=== PATIENT | female | born 1955 | race Caucasian/White ===

== ENCOUNTER 2019-03-05 15:28 | Outpatient (CLI) | payer OTHER ==
--- NOTE | 2019-03-05 15:57 | XRAY Report ---
Reason: SOFT PAINFUL LESION DORSUM OF R MID FOOT Procedure Date: 03/05/2019 Accession Number: [id number] / [id number] Procedure: XR - Foot 3 View RT CPT Code: FULL RESULT: EXAM: RIGHT FOOT RADIOGRAPHY EXAM DATE: 03/05/2019 03:40 PM. CLINICAL HISTORY: SOFT PAINFUL LESION DORSUM OF R MID FOOT. COMPARISON: None. TECHNIQUE: 3 views. FINDINGS: Bones: Normal. No fractures or bone lesions. Joints: Normal. No subluxations. Soft Tissues: On the lateral view, there is a subtle superficial soft tissue bump on the dorsum of the right midfoot. IMPRESSION: 1. No osseous abnormality. 2. There is a small subtle dorsal midfoot soft tissue lump. If clinically indicated, the next imaging option would be targeted ultrasound. [facility]
== END 2019-03-05 15:29 | disposition home or self-care (01) ==
LOC: DI 15:28
PROVIDERS: ATTEND Podiatrist
DX: M79.671 Pain in right foot (principal); R22.41 Localized swelling, mass and lump, right lower limb

== ENCOUNTER 2019-06-19 16:33 | Emergency (ER) | payer OTHER ==
--- NOTE | 2019-06-19 16:58 | ED Physician Documentation ---
PD HPI NECK PAIN - Stated complaint Stated Complaint: FALL/NECK PX - Chief complaint Chief Complaint: Trauma Hd/Nk - History obtained from History obtained from: Patient (64-year-old woman who at the age of 35 had an LA with angioplasty, she is on cardiac meds and aspirin but no other anticoagulants. She tripped over her dog today and fell down the stairs, she complains mostly of neck pain but also hit her head. No severe headache. No l oss of consciousness. No injuries below the clavicles. She is walking around just fine. She declines pain medication on initial evaluation.) Review of Systems Constitutional: denies: Fever, Chills Eyes: denies: Loss of vision, Decreased vision Ears: denies: Loss of hearing, Ear pain Nose: denies: Rhinorrhea / runny nose, Congestion Throat: denies: Sore throat Cardiac: denies: Chest pain / pressure, Palpitations PD PAST MEDICAL HISTORY - Present Medications Home Medications: Ambulatory Orders Medication Instructions Recorded Confirmed Aspirin Chewable [[facility] Jeremias 81 mg DAILY 06/19/19 06/19/19 Aspirin] Eplerenone 50 mg PO DAILY 06/19/19 06/19/19 Lisinopril [Zestril] 20 mg PO DAILY 06/19/19 06/19/19 Metoprolol Succinate 150 mg PO DAILY 06/19/19 06/19/19 Rosuvastatin Calcium 40 mg PO DAILY 06/19/19 06/19/19 Venlafaxine HCl [Effexor Xr] 75 mg DAILY 06/19/19 06/19/19 - Allergies Allergies/Adverse Reactions: Allergies Allergy/AdvReac Type Severity Reaction Status Date / Time acetaminophen [From Vicodin] Allergy Itching Verified 06/19/19 16:41 hydrocodone [From Vicodin] Allergy Itching Verified 06/19/19 16:41 PD ED PE NORMAL - Vitals Vital signs reviewed: Yes - General General: Alert and oriented X 3, No acute distress - HEENT HEENT: PERRL, EOMI - Neck Neck: Other (Mild upper and mid C-spine tenderness, she is in a collar on my examination.) - Cardiac Cardiac: RRR, No murmur - Respiratory Respiratory: No respiratory distress, Clear bilaterally - Abdomen Abdomen: Non tender - Back Back: No CVA TTP, No spinal TTP - Derm Derm: Normal color, Warm and dry - Extremities Extremities: No deformity, No tenderness to palpate, Normal ROM s pain, No edema, No calf tenderness / cord - Neuro Neuro: Alert and oriented X 3, No motor deficit, No sensory deficit, Normal speech Results - Vitals Vitals: Vital Signs - 24 hr 06/19/19 06/19/19 06/19/19 16:35 20:21 21:25 Temperature 36.4 C L 37.0 C 37.0 C Heart Rate 63 65 73 Respiratory 16 20 16 Rate Blood Pressure 143/84 H 126/76 130/68 O2 Saturation 98 93 95 Oxygen O2 Source Room air - Labs Labs: Laboratory Tests 06/19/19 06/19/19 06/19/19 18:56 19:31 19:31 WBC 8.6 RBC 4.48 Hgb 13.5 Hct 41.1 MCV 91.7 MCH 30.1 MCHC 32.8 RDW 12.1 Plt Count 222 MPV 11.7 H Neut # (Auto) 5.4 Lymph # (Auto) 2.3 [place] # (Auto) 0.6 Eos # (Auto) 0.2 Baso # (Auto) 0.0 Absolute Nucleated RBC 0.00 Nucleated RBC % 0.0 PT 11.8 INR 1.0 Sodium 140 Potassium 4.0 Chloride 103 Carbon Dioxide 27 Anion Gap 10.0 BUN 12 Creatinine 0.9 Estimated GFR (MDRD) 63 L Glucose 128 H Calcium 9.5 - Rads (name of study) CT Head Radiology: EMP read contemporaneously (normal) Ct Cspine Radiology: EMP read contemporaneously (1. Unstable C1 injury. Mildly displaced acute fractures of the right and left anterior arch of C1. Nondisplaced fract ures of the right and left posterior arch of C1. Minimal right and mild left posterior subluxation of the lateral masses of C1 relative to C2. 2. No other fracture is identified in the cervical spine. 3. Moderate multilevel cervical degenerative changes as described above. ) CT of the thoracic and lumbar spine Radiology: EMP read contemporaneously (Mid right thyroid nodule measuring 1.4 cm, degenerative changes in the lumbar spine, no fractures.) PD MEDICAL DECISION MAKING - ED course ED course: 64-year-old woman with a fall down the stairs, initially really only the C-spine was the concern and does have an unstable C1 fracture, maintained in C-spine precautions and accepted to [facility] by Dr. Garibay For further evaluation and treatment, cobras were completed and she is stable for transport to a higher level of care. Subsequent to the C-spine fracture the remainder of the spine was imaged Without other pertinent positive findings. Departure - Departure Disposition: 02 Transfer Acute Care Hosp Clinical Impression: Thyroid nodule Concussion Qualifiers: Encounter type: initial encounter Loss of consciousness presence/duration: without LOC Qualified Code(s): S06.0X0A - Concussion without loss of consciousness, initial encounter Closed fracture of cervical vertebra Qualifiers: Encounter type: initial encounter Cervical vertebra fracture level: C1 Fracture morphology: burst- unstable Qualified Code(s): S12.02XA - Unstable burst fracture of first cervical vertebra, initial encounter for closed fracture Condition: Serious Discharge Date/Time: 06/19/19 21:30
--- NOTE | 2019-06-19 18:04 | CT Report ---
Reason: neck injury Procedure Date: 06/19/2019 Accession Number: [id number] / [id number] Procedure: CT - CERVICAL SPINE WO CPT Code: Addended Final Report FULL RESULT: EXAM: CT CERVICAL SPINE WITHOUT CONTRAST DATE: 06/19/2019 05:33 PM. HISTORY: Neck injury. Ground level fall, neck pain. COMPARISONS: HEAD W/O 06/19/2019 5:22 PM. TECHNIQUE: Thin-section axial images were acquired of the cervical spine without contrast. Post-processing: Coronal and sagittal reformats. Other: None. In accordance with CT protocol optimization, one or more of the following dose reduction techniques were utilized for this exam: automated exposure control, adjustment of mA and/or KV based on patient size, or use of iterative reconstructive technique. FINDINGS: Alignment: Minimal left convex cervical spine curvature. Posterior subluxation of the lateral masses of C1 relative to C2 measuring 2 mm on the right and 4 mm on the left. Bones: Acute fractures of the right and left aspects of the anterior arch of C1 with minimal displacement. Fractures at the roots of the posterior arch of C1 on the right and left without displacement. No other fracture or focal bone lesion from the craniocervical junction through T2. Interspace Levels/Facets: Mild osteoarthritis at the pre-dens interval. Minimal posterior endplate osteophyte formation at C3-C4. Disk height loss and endplate osteophyte formation indicating degenerative disk disease which is mild at C5-C6 and moderate at C6-C7. There is facet osteoarthritis which is moderate on the left at C2-C3, mild bilaterally at C3-C4, moderate on the right at C4-C5, moderate on the left at C5-C6. There is bony foraminal stenosis which is mild on the left at C2-C3, mild bilaterally at C3-C4 moderate on the right at C4-C5, moderate bilaterally at C5-C6, mild bilaterally at C6-C7. Musculature: Normal. No fatty atrophy. Other: The paravertebral and prevertebral soft tissues are unremarkable. The lung apices are clear. IMPRESSION: 1. Unstable C1 injury. Mildly displaced acute fractures of the right and left anterior arch of C1. Nondisplaced fractures of the right and left posterior arch of C1. Minimal right and mild left posterior subluxation of the lateral masses of C1 relative to C2. 2. No other fracture is identified in the cervical spine. 3. Moderate multilevel cervical degenerative changes as described above. [facility] The critical result notification system was initiated by Dr. Tono Barfield at 05:58 PM on 06/19/2019. ADDENDUM: 06/19/19 18:41 The above critical result findings were discussed with Armando Sarkar by Dr. Tono Barfield at 06:04 PM on 06/19/2019.
--- NOTE | 2019-06-19 18:07 | CT Report ---
Reason: head injury Procedure Date: 06/19/2019 Accession Number: [id number] / [id number] Procedure: CT - HEAD WO CPT Code: Final Report FULL RESULT: EXAM: CT HEAD EXAM DATE: 06/19/2019 05:33 PM. CLINICAL HISTORY: Head injury. Ground-level fall with head pain today. COMPARISON: CERVICAL SPINE W/O 06/19/2019 5:22 PM. TECHNIQUE: Multiaxial CT images were obtained from the foramen magnum to the vertex. Reformats: Sagittal and coronal. IV contrast: None. In accordance with CT protocol optimization, one or more of the following dose reduction techniques were utilized for this exam: automated exposure control, adjustment of mA and/or KV based on patient size, or use of iterative reconstructive technique. FINDINGS: Parenchyma: No intraparenchymal hemorrhage. No evidence of mass, midline shift or CT findings of acute territorial infarction. Mckeon-white differentiation is distinct. Extraaxial Spaces: No subdural or epidural collections identified. Ventricles: No hydrocephalus Sinuses: Imaged paranasal sinuses, orbits, and mastoids show no significant abnormality. Bones: No evidence of acute skull fracture. Partial visualization of C1 fracture. See CT cervical report. Other: None. IMPRESSION: No acute intracranial abnormalities. [facility]
--- NOTE | 2019-06-19 19:00 | CT Report ---
Reason: cervical spine fracture Procedure Date: 06/19/2019 Accession Number: [id number] / [id number] Procedure: CT - THORACIC SPINE WO CPT Code: Final Report FULL RESULT: EXAM: CT THORACIC SPINE WITHOUT CONTRAST EXAM DATE: 06/19/2019 06:35 PM. CLINICAL HISTORY: Cervical spine fracture. Ground level fall today. COMPARISONS: CERVICAL SPINE W/O 06/19/2019 5:22 PM. TECHNIQUE: Thin-section axial images were acquired of the thoracic spine from C7 to L1 without contrast. Post-processing: Coronal and sagittal reformats. Other: None. In accordance with CT protocol optimization, one or more of the following dose reduction techniques were utilized for this exam: automated exposure control, adjustment of mA and/or KV based on patient size, or use of iterative reconstructive technique. FINDINGS: Alignment: Minimal right convex thoracic spine curvature. Bones: No fracture or bone lesion. Disk Levels/Facets: Thoracic disk space heights are preserved. Facets are unremarkable. Musculature: Normal. No fatty atrophy. Other: The visualized mediastinum is unremarkable except for a possible tiny sliding hiatal hernia and a 1.4 cm lobulation/nodule isodense arising from the posterior mid right thyroid lobe. There is minimal physiologic reticular dependent atelectasis in both lungs. IMPRESSION: 1. Normal thoracic spine CT. 2. Nonspecific 1.4 cm lobulation/exophytic nodule arising from the posterior mid right thyroid lobe. [facility]
--- NOTE | 2019-06-19 19:06 | CT Report ---
Reason: cervical spine fracture Procedure Date: 06/19/2019 Accession Number: [id number] / [id number] Procedure: CT - LUMBAR SPINE WO CPT Code: Final Report FULL RESULT: EXAM: CT LUMBAR SPINE WITHOUT CONTRAST EXAM DATE: 06/19/2019 06:35 PM. CLINICAL HISTORY: Cervical spine fracture. Ground level fall today. COMPARISONS: THORACIC SPINE W/O 06/19/2019 6:31 PM. TECHNIQUE: Thin-section axial images were acquired of the lumbar spine from T11 to S3 without contrast. Post-processing: Coronal and sagittal reformats. Other: None. In accordance with CT protocol optimization, one or more of the following dose reduction techniques were utilized for this exam: automated exposure control, adjustment of mA and/or KV based on patient size, or use of iterative reconstructive technique. FINDINGS: Alignment: No scoliosis or spondylolisthesis. Bones: Five [id number] lumbar vertebral bodies are present. No fractures or bone lesions. Disk Levels/Facets: Mild disk height loss at L2-L3. Mild anterior endplate osteophyte formation at L2-L3 and L3-L4. No focal disk protrusion or significant bulges notified. Mild bilateral L5-S1 facet osteoarthritis. Musculature: Normal. No fatty atrophy. Other: The visualized retroperitoneum is unremarkable. IMPRESSION: 1. No fracture or subluxation in the lumbar spine. 2. Mild L2-L3 and minimal L3-L4 degenerative disk disease. [facility]IA
[2019-06-19 19:18] LABS: BASOPHILS % (AUTO) 0.5 %; EOSINOPHILS # (AUTO) 0.2 10^3/uL (0.0-0.7); EOSINOPHILS % (AUTO) 2.6 %; HGB - HEMOGLOBIN 13.5 g/dL (12.0-16.0); LYMPHOCYTES # (AUTO) 2.3 10^3/uL (1.5-3.5); LYMPHOCYTES % (AUTO) 26.6 %; MEAN CORPUSCULAR HEMOGLOBIN 30.1 pg (27.0-31.0); MEAN CORPUSCULAR HGB CONC 32.8 g/dL (32.0-36.0); MEAN CORPUSCULAR VOLUME 91.7 fL (81.0-99.0); MEAN PLATELET VOLUME 11.7 fL (7.9-10.8); MONOCYTES # (AUTO) 0.6 10^3/uL (0.0-1.0); MONOCYTES % (AUTO) 7.2 %; NEUTROPHILS # (AUTO) 5.4 10^3/uL (1.5-6.6); NEUTROPHILS % (AUTO) 62.8 %; PLT - PLATELET COUNT 222 10^3/uL (130-450); RED BLOOD COUNT 4.48 10^6/uL (4.20-5.40); RED CELL DISTRIBUTION WIDTH 12.1 % (12.0-15.0); WHITE BLOOD COUNT 8.6 x10^3/uL (4.8-10.8)
[2019-06-19] MEDS ORDERED: HYDROmorphone 1 MG/ML CARPUJECT IVP STA (19:31)
[2019-06-19 19:43] LABS: CALCIUM 9.5 mg/dL (8.5-10.3); CREATININE 0.9 mg/dL (0.4-1.0)
[2019-06-19 19:50] LABS: PT - PROTHROMBIN TIME 11.8 secs (9.9-12.6)
[2019-06-19 21:30] VITALS: BP 130/68
== END 2019-06-19 21:30 | disposition short-term general hospital (02) ==
LOC: ED 16:33
DX: S12.02XA Unstable burst fracture of first cervical vertebra, initial encounter for closed fracture (principal); S06.0X0A Concussion without loss of consciousness, initial encounter; W10.9XXA Fall (on) (from) unspecified stairs and steps, initial encounter; Y93.01 Activity, walking, marching and hiking; E04.1 Nontoxic single thyroid nodule; M50.323 Other cervical disc degeneration at C6-C7 level; M47.812 Spondylosis without myelopathy or radiculopathy, cervical region; M51.36 Other intervertebral disc degeneration, lumbar region; I25.2 Old myocardial infarction; Z98.61 Coronary angioplasty status; Z79.82 Long term (current) use of aspirin
CPT/HCPCS: 36415; 70450; 72125; 72128; 72131; 80048; 85025; 85610; 96374; 99284; 99285; J1170

== ENCOUNTER 2021-02-16 08:51 | Inpatient (IN) | payer OTHER ==
[2021-02-16 09:42] LABS: BASOPHILS # (AUTO) 0.1 10^3/uL (0.0-0.1); BASOPHILS % (AUTO) 0.5 %; EOSINOPHILS # (AUTO) 0.1 10^3/uL (0.0-0.7); EOSINOPHILS % (AUTO) 0.6 %; HCT - HEMATOCRIT 41.9 % (37.0-47.0); HGB - HEMOGLOBIN 13.7 g/dL (12.0-16.0); LYMPHOCYTES # (AUTO) 1.5 10^3/uL (1.5-3.5); LYMPHOCYTES % (AUTO) 13.3 %; MEAN CORPUSCULAR HEMOGLOBIN 30.6 pg (27.0-31.0); MEAN CORPUSCULAR HGB CONC 32.7 g/dL (32.0-36.0); MEAN CORPUSCULAR VOLUME 93.7 fL (81.0-99.0); MEAN PLATELET VOLUME 11.4 fL (7.9-10.8); MONOCYTES # (AUTO) 0.5 10^3/uL (0.0-1.0); NEUTROPHILS # (AUTO) 8.8 10^3/uL (1.5-6.6); NEUTROPHILS % (AUTO) 80.3 %; PLT - PLATELET COUNT 254 10^3/uL (130-450); RED BLOOD COUNT 4.47 10^6/uL (4.20-5.40); WHITE BLOOD COUNT 10.9 x10^3/uL (4.8-10.8)
[2021-02-16 09:55] LABS: ALBUMIN 4.7 g/dL (3.2-5.5); ALBUMIN/GLOBULIN RATIO 1.6 (1.0-2.2); CALCIUM 9.5 mg/dL (8.5-10.3); CREATININE 1.1 mg/dL (0.4-1.0); POTASSIUM 4.6 mmol/L (3.5-5.0); TOTAL PROTEIN 7.6 g/dL (6.7-8.2)
[2021-02-16] MEDS ORDERED: HYDROmorphone 1 MG/ML CARPUJECT IVP STA ×2 (09:57→14:52)
[2021-02-16] MEDS ORDERED: ONDANSETRON 4 MG/2 ML VIAL IVP STA (09:57)
--- NOTE | 2021-02-16 10:02 | ED Physician Documentation ---
PD HPI ABD PAIN - Stated complaint Stated Complaint: N/V - Chief complaint Chief Complaint: Abd Pain - History obtained from History obtained from: Patient - History of Present Illness Timing - onset: Last night (2AM) Timing - duration: Hours Timing - details: Abrupt onset Pain level max: 8 Pain level now: 8 Quality: Aching Location: LUQ, LLQ Improved by: Other (Tylenol at 3AM took the 'edge off') Associated symptoms: Nausea, Vomiting. No: Fever, Diarrhea, Constipation, Dysuria, Hematuria, Chest pain, Dizzy, Near syncope / syncope Similar symptoms before: Has not had sx before - Additional information Additional information: This is a 65-year-old woman who was awakened at 2 AM with pain in her left lower abdomen. She was nauseous and had 2 episodes of vomiting through the night the last one being at 3 AM. She rates the pain at an 8 out of 10 it has been constant since it started. She did not eat anything that she thinks may have made her ill and she is never had pain like this before. Denies abdominal surgeries. Denies diarrhea or blood in the stool. No fever. She did take Tylenol at approximately 8 AM and it "took the edge off".Patient denies fever, palpitations, dizziness, difficulty breathing, dysuria or hematuria. Denies abdominal surgeries. Rarely drinks alcohol. Review of Systems Constitutional: reports: Chills. denies: Fever Eyes: denies: Loss of vision Nose: denies: Congestion Cardiac: denies: Palpitations Respiratory: denies: Dyspnea, Cough GI: reports: Nausea, Vomiting. denies: Constipation, Diarrhea : denies: Dysuria, Frequency Neurologic: denies: Generalized weakness PD PAST MEDICAL HISTORY - Past Medical History Cardiovascular: Hypertension - Present Medications Home Medications: Ambulatory Orders Medication Instructions Recorded Confirmed Aspirin Chewable [St Jeremias 81 mg DAILY 06/19/19 06/19/19 Aspirin] Eplerenone 50 mg PO DAILY 06/19/19 06/19/19 Lisinopril [Zestril] 20 mg PO DAILY 06/19/19 06/19/19 Metoprolol Succinate 150 mg PO DAILY 06/19/19 06/19/19 Rosuvastatin Calcium 40 mg PO DAILY 06/19/19 06/19/19 Venlafaxine HCl [Effexor Xr] 75 mg DAILY 06/19/19 06/19/19 - Allergies Allergies/Adverse Reactions: Allergies Allergy/AdvReac Type Severity Reaction Status Date / Time acetaminophen [From Vicodin] Allergy Itching Verified 02/16/21 09:09 hydrocodone [From Vicodin] Allergy Itching Verified 02/16/21 09:09 - Social History Does the pt smoke?: No Smoking Status: Never smoker Does the pt drink ETOH?: Yes Does the pt have substance abuse?: No - POLST Patient has POLST: No PD ED PE NORMAL - Vitals Vital signs reviewed: Yes - General General: Alert and oriented X 3, Well developed/nourished, Other (Appears unc omfortable holding her hand to her left abdomen) - HEENT HEENT: Atraumatic, EOMI - Cardiac Cardiac: RRR, No murmur - Respiratory Respiratory: No respiratory distress, Clear bilaterally - Abdomen Abdomen: Other (Tender in the left lower and left upper quadrants with some guarding. No rebound. No palpable masses.) - Derm Derm: Normal color, Warm and dry - Neuro Neuro: Alert and oriented X 3, No motor deficit, No sensory deficit, Normal speech - Psych Psych: Normal mood Results - Vitals Vitals: Vital Signs - 24 hr 02/16/21 02/16/21 02/16/21 09:06 11:09 12:23 Temperature 36.8 C Heart Rate 62 54 L 57 L Respiratory 15 15 18 Rate Blood Pressure 136/84 H 112/63 115/70 O2 Saturation 99 99 99 02/16/21 02/16/21 02/16/21 14:09 16:04 17:01 Temperature Heart Rate 63 120 H 64 Respiratory 16 17 17 Rate Blood Pressure 113/66 103/57 L 96/82 H O2 Saturation 97 99 95 Oxygen O2 Source Room air - EKG (time done) 1718 Rate: Rate (enter#) (55) Rhythm: Sinus bradycardia Ischemia: Non specific changes - Labs Labs: Laboratory Tests 02/16/21 02/16/21 02/16/21 09:31 09:31 10:55 WBC 10.9 H RBC 4.47 Hgb 13.7 Hct 41.9 MCV 93.7 MCH 30.6 MCHC 32.7 RDW 12.0 Plt Count 254 MPV 11.4 H Neut # (Auto) 8.8 H Lymph # (Auto) 1.5 Edgar # (Auto) 0.5 Eos # (Auto) 0.1 Baso # (Auto) 0.1 Absolute Nucleated RBC 0.00 Nucleated RBC % 0.0 D-Dimer Sodium 135 Potassium 4.6 Chloride 99 L Carbon Dioxide 25 Anion Gap 11.0 BUN 14 Creatinine 1.1 H Estimated GFR (MDRD) 50 L Glucose 199 H Calcium 9.5 Total Bilirubin 1.0 AST 56 H ALT 59 Alkaline Phosphatase 76 Total Protein 7.6 Albumin 4.7 Globulin 2.9 Albumin/Globulin Ratio 1.6 Lipase 36 Urine Color Urine Clarity Urine pH Ur Specific [place] Urine Protein Urine Glucose (UA) Urine Ketones Urine Occult Blood Urine Nitrite Urine Bilirubin Urine Urobilinogen Ur Leukocyte Esterase Ur Microscopic Review Urine Culture Comments SARS-CoV-2 (PCR) NOT DETECTED 02/16/21 02/16/21 12:22 15:07 WBC RBC Hgb Hct MCV MCH MCHC RDW Plt Count MPV Neut # (Auto) Lymph # (Auto) Edgar # (Auto) Eos # (Auto) Baso # (Auto) Absolute Nucleated RBC Nucleated RBC % D-Dimer 339.5 H Sodium Potassium Chloride Carbon Dioxide Anion Gap BUN Creatinine Estimated GFR (MDRD) Glucose Calcium Total Bilirubin AST ALT Alkaline Phosphatase Total Protein Albumin Globulin Albumin/Globulin Ratio Lipase Urine Color YELLOW Urine Clarity CLEAR Urine pH 7.0 Ur Specific [place] 1.015 Urine Protein NEGATIVE Urine Glucose (UA) NEGATIVE Urine Ketones NEGATIVE Urine Occult Blood NEGATIVE Urine Nitrite NEGATIVE Urine Bilirubin NEGATIVE Urine Urobilinogen 0.2 (NORMAL) Ur Leukocyte Esterase NEGATIVE Ur Microscopic Review NOT INDICATED Urine Culture Comments NOT INDICATED SARS-CoV-2 (PCR) PD MEDICAL DECISION MAKING - ED course ED course: CT consistent with a splenic infarct. No evidence of diverticulitis. Her white counts only 10.9. BUN and creatinine are normal. Covid screen was negative. She does have an elevated D-dimer which was added after the infarct was found. I was able to talk to a vascular surgeon who recommended that the patient have a hypercoagulable panel drawn then started on a heparin bolus and drip. Further work-up to include EKG to rule out A. fib which her EKG shows sinus rhythm. CTA chest including the upper abdomen and an echocardiogram. Surgeon felt this would be medical management without any surgical or interventional intervention.I spoke with our hospitalist and Dr. Sutherland has accepted the patient for admission. Departure - Departure Disposition: 66 [facility] DC/Xfer Clinical Impression: Splenic infarction Condition: Good
[2021-02-16 12:33] LABS: BILIRUBIN,URINE NEGATIVE (NEGATIVE); GLUCOSE, URINE (UA) NEGATIVE (NEGATIVE); KETONES,URINE (UA) NEGATIVE (NEGATIVE); LEUKOCYTE ESTERASE, URINE NEGATIVE (NEGATIVE); NITRITE,URINE NEGATIVE (NEGATIVE); OCCULT BLOOD,URINE NEGATIVE (NEGATIVE); PROTEIN,URINE NEGATIVE (NEGATIVE); UROBILINOGEN,URINE 0.2 (NORMAL) E.U./dL (NORMAL)
[2021-02-16 12:34] LABS: CLARITY,URINE CLEAR (CLEAR)
[2021-02-16] MEDS ORDERED: IOPAMIDOL-300 100 ML VIAL ONE ×2 (14:08→18:09)
--- NOTE | 2021-02-16 14:41 | CT Report ---
PROCEDURE: Abdomen/Pelvis W INDICATIONS: Abd pain CONTRAST: IV CONTRAST: Isovue 300 ml: 100 PO CONTRAST: *NO PO CONTRAST TECHNIQUE: After the administration of intravenous contrast, 5 mm thick sections acquired from the diaphragms to the symphysis. 5 mm thick coronal and sagittal reformats were acquired. For radiation dose reducti on, the following was used: automated exposure control, adjustment of mA and/or kV according to vidal ent size. COMPARISON: None. FINDINGS: Image quality: Excellent. ABDOMEN: Lung bases: Lung bases are clear. Heart size is normal. Solid organs: There is essentially no opacification in the anterior spleen, with approximately 50% of the parenchyma not opacified. Findings are consistent with a splenic infarct. The liver is unremarka ble. Biliary system is non dilated. Pancreas enhances normally. No adrenal nodules. Kidneys demons trate normal size and enhancement, without hydronephrosis. Peritoneum and bowel: Bowel loops demonstrate normal wall thickness and caliber. No free fluid or a ir. Nodes and vessels: No retroperitoneal or mesenteric adenopathy by size criteria. Aorta and inferior vena cava are normal in size. Miscellaneous: No ventral hernias. PELVIS: Genitourinary: Bladder wall thickness is normal. Miscellaneous: No inguinal hernias or adenopathy. Bones: No suspicious bony lesions. No vertebral body compression fractures. IMPRESSION: Moderate sized splenic infarct affecting approximately 50% of the splenic parenchyma. Reviewed by: Rubens Echevarria MD on 02/16/2021 2:40 PM PDT Approved by: Rubens Echevarria MD on 02/16/2021 2:40 PM PDT Station ID: [id number]
[2021-02-16] MEDS: IOPAMIDOL-300 100 ML VIAL IVP ONE ×2 (16:49→20:48)
[2021-02-16] MEDS ORDERED: ONDANSETRON 4 MG/2 ML VIAL IVP PRN (17:34)
[2021-02-16] MEDS ORDERED: MORPHINE 2 MG/ML CARPUJECT IVP PRN (17:34)
[2021-02-16] MEDS ORDERED: ONDANSETRON ODT 4 MG TABLET TL PRN (17:34)
[2021-02-16] MEDS ORDERED: SODIUM CHLORIDE FLUSH 0.9% 10 ML SYRINGE IVP PRN (17:34)
--- NOTE | 2021-02-16 17:56 | HISTORY & PHYSICAL EXAMINATION ---
Chief Complaint - Chief Complaint Chief Complaint: abd pain History of Present Illness - Admitted From Admitted From:: home - History Obtained From Records Reviewed: [facility] History obtained from: patient and Dr. Gibbs Exam Limitations: none - History of Present Illness HPI Comment/Other: A 65-year-old white female who has a history of hypertension and MO that presents with sudden abdominal pain this morning. It woke her from sleep at 2 AM. It was associated with vomiting. No diarrhea. No change in her bowel movements. Denies fever, chills, rigors. It is left-sided. Made worse with movement. Driving here definitely would increase the severity of the pain. She is having bowel movements, is having flatus. Tylenol does take the edge off. She was evaluated by the ER doctor who found her temperature to be 36.8, heart rate 62, respirations 15, blood pressure 136/84 and 99% saturated on room air. She was tender in the left lower and left upper quadrants with some guarding. No rebound. No masses. Positive bowel sounds. I white cell count was 10.9, hemoglobin 13.7. A CT of the abdomen was done and consistent with a splenic infarct. The emergency room physician consulted with vascular surgery who recommended the patient have a hypercoagulable work-up, to be started on heparin drip, and see if other causes such as A. fib with emboli has caused this problem. On further review of systems this patient does not have any B symptoms. No recent weight loss. No change in appetite. History - Past Medical History Cardiovascular: reports: Hypertension Neuro: reports: None Endocrine/Autoimmune: reports: None GI: reports: None GRAPHIC TECHNICIAN: reports: None : reports: None HEENT: reports: None Psych: reports: None Musculoskeletal: reports: Other Derm: reports: None - POLST Patient has POLST: No Meds/Allgy - Home Medications Home Medications: Ambulatory Orders Medication Instructions Recorded Confirmed Aspirin Chewable [St Jeremias 81 mg DAILY 06/19/19 06/19/19 Aspirin] Eplerenone 50 mg PO DAILY 06/19/19 06/19/19 Lisinopril [Zestril] 20 mg PO DAILY 06/19/19 06/19/19 Metoprolol Succinate 150 mg PO DAILY 06/19/19 06/19/19 Rosuvastatin Calcium 40 mg PO DAILY 06/19/19 06/19/19 Venlafaxine HCl [Effexor Xr] 75 mg DAILY 06/19/19 06/19/19 - Allergies Allergies/Adverse Reactions: Allergies Allergy/AdvReac Type Severity Reaction Status Date / Time acetaminophen [From Vicodin] Allergy Itching Verified 02/16/21 09:09 hydrocodone [From Vicodin] Allergy Itching Verified 02/16/21 09:09 Exam - Vital Signs Vital Signs: Vital Signs x48h Pulse Resp BP Pulse Ox 02/16/21 17:01 64 17 96/82 H 95 02/16/21 16:04 120 H 17 103/57 L 99 02/16/21 14:09 63 16 113/66 97 02/16/21 12:23 57 L 18 115/70 99 02/16/21 11:09 54 L 15 112/63 99 Conclusion/Plan - Lab Results Lab results reviewed: Yes Fish Bones: 02/16/21 09:31 02/16/21 09:31 - Diagnostic Imaging Results Diagnostic Imaging Results: positive: Final report reviewed Core Measures - Anticipated LOS I expect patient to be DC'd or transferred within 96 hours.: Yes - DVT/VTE - Prophylaxis VTE/DVT Device ordered at admit?: Yes
[2021-02-16] MEDS ORDERED: HEPARIN 25000UNITS/500ML (D5W) 25,000 UNIT/500 ML BAG IV SCH ×3 (18:00→21:00)
[2021-02-16] MEDS ORDERED: SODIUM CHLORIDE 0.9% 1,000 ML IV ONE (18:09)
[2021-02-16 18:25] LABS: HCT - HEMATOCRIT 38.3 % (37.0-47.0); HGB - HEMOGLOBIN 13.2 g/dL (12.0-16.0); MEAN CORPUSCULAR HEMOGLOBIN 31.4 pg (27.0-31.0); MEAN CORPUSCULAR HGB CONC 34.5 g/dL (32.0-36.0); MEAN CORPUSCULAR VOLUME 91.2 fL (81.0-99.0); MEAN PLATELET VOLUME 10.9 fL (7.9-10.8); RED BLOOD COUNT 4.2 10^6/uL (4.20-5.40); RED CELL DISTRIBUTION WIDTH 12.1 % (12.0-15.0); WHITE BLOOD COUNT 8.6 x10^3/uL (4.8-10.8)
--- NOTE | 2021-02-16 19:43 | CT Report ---
PROCEDURE: ANGIO CHEST W INDICATIONS: splenic infarct CONTRAST: IV CONTRAST: Isovue 300 ml: 100 PO CONTRAST: *NO PO CONTRAST TECHNIQUE: After the administration of intravenous contrast, images were acquired from the pulmonary apices to t he posterior costophrenic angles. 3-dimensional maximum intensity projection (MIP) coronal and sagit tonie reformats were then acquired through the thorax. For radiation dose reduction, the following was used: automated exposure control, adjustment of mA and/or kV according to patient size. COMPARISON: Prior CT abdomen pelvis 02/16/2021. Concurrent CT angiogram of the abdomen and pelvis. FINDINGS: Image quality: Excellent. Aorta: The thoracic aorta is normal in caliber and contour. No intimal flaps to suggest dissection. N o intraluminal thrombus identified. There is a bovine aortic arch with common origin of the right bra chiocephalic and left common carotid arteries. The visualized great vessels are normal in caliber and appear patent. Lungs and pleura: There is mild dependent atelectasis. No acute consolidation. No pleural effusions o r pneumothorax. Central and peripheral airways are patent. Mediastinum: Heart size is normal, without pericardial effusion. Evaluation for intraventricular thr ombus is limited in the absence of cardiac gating. There is subendocardial fat within the myocardium of the left ventricular apex. The pulmonary arteries are normal in size without filling defects ident ified. No mediastinal or hilar adenopathy. Esophagus is normal in caliber, with a small hiatal herni a. Bones and chest wall: No suspicious bony lesions. Ribs and thoracic spine appear intact throughout. No axillary or supraclavicular adenopathy. There is heterogeneity of the thyroid with a hypoattenu ating nodule in the left lobe measuring approximately 1.1 cm. Abdomen: Visualized upper abdomen demonstrates heterogeneous enhancement of the spleen with hypoenha ncement anteriorly consistent with an infarct. IMPRESSION: 1. No focal stenosis, occlusion, or filling defects within the thoracic aorta. 2. Subendocardial fat within the left ventricular apex. The finding is nonspecific but suggestive of a prior infarct. Evaluation for intraventricular thrombus limited in the absence of cardiac gating. R ecommend correlation with echocardiography. 3. Hypoenhancement of the spleen consistent with a splenic infarct redemonstrated. Reviewed by: Tono Rojas MD on 02/16/2021 7:42 PM PDT Approved by: Tono Rojas MD on 02/16/2021 7:42 PM PDT Station ID: [id number]
--- NOTE | 2021-02-16 19:53 | CT Report ---
PROCEDURE: ANGIO ABDOMEN/PELVIS W INDICATIONS: abd pain and splenic infarct CONTRAST: IV CONTRAST: Isovue 300 ml: 100 PO CONTRAST: *NO PO CONTRAST TECHNIQUE: After the administration of intravenous contrast, 1 mm sections acquired from the diaphragm to the il iac crests. 3-dimensional maximum intensity projection (MIP) coronal and sagittal reformats, and/or 3-dimensional volume rendering reformatting was then performed. For radiation dose reduction, the fo llowing was used: automated exposure control, adjustment of mA and/or kV according to patient size. COMPARISON: Concurrent CTA chest. Prior CT abdomen pelvis 02/16/2021. FINDINGS: Image quality: Excellent. Extravascular tissues: There is mild scarring and dependent atelectasis in the lung bases. There is a small hiatal hernia. Heart size is normal. The spleen is normal in size. There is hypoenhancement o f the spleen anteriorly redemonstrated compatible with splenic infarcts. No focal hepatic lesions bhavesh ntified. Gallbladder appears within normal limits without calcified gallstones. Biliary system is non dilated. Pancreas demonstrates normal contours without peripancreatic fluid. No adrenal nodules. K idneys since are no hydronephrosis. Non-opacified bowel loops demonstrate normal wall thickness and c aliber. No free fluid or air. The bladder is nondistended. No retroperitoneal or mesenteric adenopa thy. No ventral hernias. No suspicious bony abnormalities. No vertebral body compression fractures . Abdominal aorta: The abdominal aorta is normal in caliber and contour. The visualized common, trimmer machine operator al, and internal iliac arteries as well as the visualized common femoral arteries also appear patent. There is mild scattered calcified atherosclerotic plaque. No focal stenosis. Mesenteric arteries: The celiac and superior mesenteric arteries appear patent. The splenic artery a ppears patent. The inferior mesenteric artery appears patent proximally with distal branches not well opacified. Renal arteries: There are single renal arteries bilaterally which appear patent. IMPRESSION: 1. No focal stenosis or thrombus identified in the abdominal aorta or its branch vessels proximally. 2. Splenic artery appears patent. Reviewed by: Tono Rojas MD on 02/16/2021 7:51 PM PDT Approved by: Tono Rojas MD on 02/16/2021 7:51 PM PDT Station ID: [id number]
[2021-02-16] MEDS: oxyCODONE 5 MG TABLET PO PRN (20:20)
[2021-02-16] MEDS ORDERED: SODIUM CHLORIDE 0.9% 2,000 ML IV ONE (20:28)
--- NOTE | 2021-02-16 20:55 | HISTORY & PHYSICAL EXAMINATION ---
History and Physical - History and Physical Chief complaint: Abdominal pain Source of history: ER signout, patient, medical record review History of present illness: The patient is a pleasant 65-year-old white female with past medical history of hypertension and remote history of coronary artery disease. She does not have history of diabetes, cardiac arrhythmia or thromboembolic disorder. She reports usually being in good general health. She was in her usual state of health up to 2 AM on February 16 at which time she was woken up from sleep by strong sharp left lower quadrant abdominal pain. The pain actually started in the upper quadrant and radiated down to the lower quadrant and to the groin. It was 8 out of 10 intensity, constant, nonresolving. Was associated with nausea and couple of episodes of emesis. Last bowel movement was the day prior, was normal. Patient reports no history or sign of GI bleed. Denied chest pain or shortness of breath. Did not report fever. Never experienced similar abdominal pain in the past. The symptom onset was acute and severe therefore she came to the ER for evaluation. The ER work-up showed a splenic infarct, 50% of the spleen parenchyma being affected. Case was discussed with vascular surgeon who recommended telemetry monitoring, heparin drip, hypercoagulability work-up echocardiogram and further work-up with CT angiography of the chest including the upper abdomen. Subsequently, the patient was accepted to [facility] by the daytime hospitalist and all the recommended orders were placed. Past medical history: Hypertension Dyslipidemia Depression C1 cervical fracture status post fall, treated conservatively Thyroid nodule Coronary artery disease status post angioplasty more than 20 years ago Outpatient medications: Aspirin Chewable [[facility] Jeremias Aspirin] 81 mg DAILY 06/19/19 Eplerenone 50 mg PO DAILY 06/19/19 Lisinopril [Zestril] 20 mg PO DAILY 06/19/19 Metoprolol Succinate 150 mg PO DAILY 06/19/19 Rosuvastatin Calcium 40 mg PO DAILY 06/19/19 Venlafaxine HCl [Effexor Xr] 75 mg DAILY 06/19/19 Allergies Allergy/AdvReac Type Severity Reaction Status Date / Time acetaminophen [From Vicodin] Allergy Itching Verified 02/16/21 09:09 hydrocodone [From Vicodin] Allergy Itching Verified 02/16/21 09:09 Family history: Patient reports that coronary artery disease strongly affected her family, multiple family members having heart disease prior to age 50. In particular her father received three-way coronary artery bypass graft at age 50. She also reports her mother had blood clots. She does not know about family history of autoimmune disorders or hypercoagulable states. She reports no frequent miscarriages in female family members however she reports that she did have a miscarriage one time. Subsequently had a healthy and has 1 child. Social history and functional status: The patient is a fully functional adult, she drives and has no cognitive or functional limitation or impairment. She is supported by her . She does not report any psychosocial issues or challenges. She is a non-smoker and drinks alcohol rarely. Advanced directive/CODE STATUS: CODE STATUS was discussed with the patient. She wishes to be full code and be treated aggressively in case of medical emergency. Her next of kin is her . Review of symptoms: 12 point review done, pertinent positives and negatives listed above at history present illness, there was no additional positive. Vital Signs 02/16/21 02/16/21 02/16/21 09:06 11:09 12:23 Temperature 36.8 C Heart Rate 62 54 L 57 L Heart Rate [ Brachial] Respiratory 15 15 18 Rate Blood Pressure 136/84 H 112/63 115/70 Blood Pressure [Right Brachial artery] O2 Saturation 99 99 99 Oxygen O2 Source Room air Physical exam: General: HEENT: Respiratory: CVS: S1, S2, Regular, no murmur rub or gallop heard Abdomen: Neurologic: Alert, oriented; no focal lateralizing sign. Psych: Cooperative. Lymph: No pedal edema. Skin: Without pallor. Musculoskeltal: Laboratory Tests 02/16/21 02/16/21 02/16/21 09:31 09:31 10:55 WBC 10.9 H RBC 4.47 Hgb 13.7 Hct 41.9 MCV 93.7 MCH 30.6 MCHC 32.7 RDW 12.0 Plt Count 254 MPV 11.4 H Neut # (Auto) 8.8 H Lymph # (Auto) 1.5 Travis # (Auto) 0.5 Eos # (Auto) 0.1 Baso # (Auto) 0.1 Absolute Nucleated RBC 0.00 Nucleated RBC % 0.0 D-Dimer Sodium 135 Potassium 4.6 Chloride 99 L Carbon Dioxide 25 Anion Gap 11.0 BUN 14 Creatinine 1.1 H Estimated GFR (MDRD) 50 L Glucose 199 H Calcium 9.5 Total Bilirubin 1.0 AST 56 H ALT 59 Alkaline Phosphatase 76 Total Protein 7.6 Albumin 4.7 Globulin 2.9 Albumin/Globulin Ratio 1.6 Lipase 36 Urine Color Urine Clarity Urine pH Ur Specific [place] Urine Protein Urine Glucose (UA) Urine Ketones Urine Occult Blood Urine Nitrite Urine Bilirubin Urine Urobilinogen Ur Leukocyte Esterase Ur Microscopic Review Urine Culture Comments SARS-CoV-2 (PCR) NOT DETECTED Blood Type Antibody Screen 02/16/21 02/16/21 02/16/21 12:22 15:07 18:09 WBC RBC Hgb Hct MCV MCH MCHC RDW Plt Count MPV Neut # (Auto) Lymph # (Auto) Travis # (Auto) Eos # (Auto) Baso # (Auto) Absolute Nucleated RBC Nucleated RBC % D-Dimer 339.5 H Sodium Potassium Chloride Carbon Dioxide Anion Gap BUN Creatinine Estimated GFR (MDRD) Glucose Calcium Total Bilirubin AST ALT Alkaline Phosphatase Total Protein Albumin Globulin Albumin/Globulin Ratio Lipase Urine Color YELLOW Urine Clarity CLEAR Urine pH 7.0 Ur Specific [place] 1.015 Urine Protein NEGATIVE Urine Glucose (UA) NEGATIVE Urine Ketones NEGATIVE Urine Occult Blood NEGATIVE Urine Nitrite NEGATIVE Urine Bilirubin NEGATIVE Urine Urobilinogen 0.2 (NORMAL) Ur Leukocyte Esterase NEGATIVE Ur Microscopic Review NOT INDICATED Urine Culture Comments NOT INDICATED SARS-CoV-2 (PCR) Blood Type A POSITIVE Antibody Screen NEGATIVE Imaging reviewed per electronic medical record, including CT scan of the abdomen, chest and pelvis Assessment and plan: Active issues/diagnoses Acute abdominal pain Moderate sized splenic infarct /50% of the parenchyma affected Follow-up CT angiography of the chest, abdomen and pelvis confirmed previously seen splenic infarct, showed patent splenic artery, however showed some endocardial fat pad at the left apex raising the possibility of intraventricular thrombus Strong family history of coronary artery disease with personal history of premature coronary artery disease/high cardiac risk Plan and orders: Admitted as inpatient Telemetry monitoring Echocardiogram Therapeutic anticoagulation on heparin drip Further work-up per vascular surgery recommendation include hypercoagulable work-up, CT angiography of the chest, abdomen and pelvis Added REJI with reflex, lipid panel, hemoglobin A1c, troponin and TSH IV hydration for renal protection will be provided following contrast load with multiple CT scans and angiography studies DVT prophylaxis with SCDs/already on heparin drip Reconcile home medications; continue metoprolol, aspirin, statin and Effexor, hold diuretics considering significant contrast load and renal protection Full Code Attestation: I certify that the patient meets inpatient criteria based on the admission diagnosis, and the above assessment, findings and plan; she is expected to be hospitalized for more than 48 hours however to discharge or transfer to other facility within less than 96 hours.
[2021-02-16 22:25] LABS: ESTIMATED AVERAGE GLUCOSE 186 mg/dL (70-100); HEMOGLOBIN A1c% 8.1 % (4.27-6.07)
[2021-02-16] MEDS: ATORVASTATIN 40 MG TABLET PO SCH (22:57)
[2021-02-17] MEDS: SODIUM CHLORIDE FLUSH 0.9% 10 ML SYRINGE IVP SCH ×3 (00:09→18:03)
[2021-02-17] MEDS: ACETAMINOPHEN 325 MG TABLET PO PRN ×2 (04:09→12:08)
[2021-02-17] MEDS: LACTATED RINGERS 1,000 ML IV SCH ×2 (06:08→18:02)
[2021-02-17 06:16] LABS: CHOLESTEROL 96 mg/dL; HDL CHOLESTEROL 32 mg/dL; LDL CHOLESTEROL,CALCULATED 33 mg/dL; TRIGLYCERIDES 157 mg/dL; VLDL CHOLESTEROL 31 mg/dL
[2021-02-17 06:45] LABS: HGB - HEMOGLOBIN 11.6 g/dL (12.0-16.0); MEAN CORPUSCULAR HEMOGLOBIN 30.6 pg (27.0-31.0); MEAN CORPUSCULAR HGB CONC 32.2 g/dL (32.0-36.0); MEAN PLATELET VOLUME 11.5 fL (7.9-10.8); RED BLOOD COUNT 3.79 10^6/uL (4.20-5.40); RED CELL DISTRIBUTION WIDTH 12.1 % (12.0-15.0); WHITE BLOOD COUNT 7.4 x10^3/uL (4.8-10.8)
[2021-02-17] MEDS: VENLAFAXINE ER 75 MG CAPSULE PO SCH (08:29)
[2021-02-17] MEDS: ASPIRIN CHEW 81 MG TABLET PO SCH ×2 (08:29→08:38)
[2021-02-17] MEDS ORDERED: METOPROLOL SUCCINATE 50 MG TABLET PO SCH ×2 (09:00→09:50)
--- NOTE | 2021-02-17 10:57 | PROVIDER PROGRESS NOTE ---
Subjective - Prog Note Date Prog Note Date: 02/17/21 Prog Note Time: 10:55 - Subjective Subjective: She still has the left mid and left upper quadrant pain. It is better than it was yesterday but coughing or sneezing make it worse. Getting up and moving makes it worse. She has flatus. No fever. No chest pain or shortness of breath. Current Medications - Current Medications Current Medications: Active Medications Acetaminophen (Acetaminophen 325 Mg Tablet) 650 mg PO Q4HR PRN PRN Reason: Pain 1 to 4 Last Admin: 02/17/21 04:09 Dose: 650 mg Documented by: Atorvastatin Calcium (Atorvastatin 40 Mg Tablet) 80 mg PO HS NAVNEET Last Admin: 02/16/21 22:57 Dose: 80 mg Documented by: Heparin Sodium (Porcine) (Heparin 1,000 Unit/Ml Vial) 2,100 unit 25 unit/kg (2100 unit) IVP Q6H PRN PRN Reason: ANTI-XA < 0.2 Lactated Ringer's (Lr) 1,000 mls @ 85 mls/hr IV .[id number] PENDING SALE TO [facility] Last Admin: 02/17/21 06:08 Dose: 85 mls/hr Documented by: Heparin Sodium/Dextrose (Heparin Sodium/Dextrose) 25,000 unit in 500 mls @ 23.4 mls/hr IV .[id number] NAVNEET; Protocol Last Titration: 02/17/21 06:21 Dose: 13 unit/kg/hr, 20.28 mls/hr Documented by: Metoprolol Succinate (Metoprolol Succinate 50 Mg Tablet) 150 mg PO QPM PENDING SALE TO [facility] Morphine Sulfate (Morphine 2 Mg/Ml Carpuject) 2 mg IVP Q2HR PRN PRN Reason: Pain 8 to 10 Ondansetron HCl (Ondansetron Odt 4 Mg Tablet) 4 mg TL Q6HR PRN PRN Reason: Nausea / Vomiting Ondansetron HCl (Ondansetron 4 Mg/2 Ml Vial) 4 mg IVP Q6HR PRN PRN Reason: Nausea / Vomiting Oxycodone HCl (Oxycodone 5 Mg Tablet) 5 mg PO Q4HR PRN PRN Reason: Pain 5 to 7 Last Admin: 02/16/21 20:20 Dose: 5 mg Documented by: Polyethylene Glycol (Polyethylene Glycol 3350 17 Gm Packet) 17 gm PO DAILY PENDING SALE TO [facility] Sodium Chloride (Sodium Chloride Flush 0.9% 10 Ml Syringe) 10 ml IVP PRN PRN PRN Reason: NEEDED PER PROVIDER ORDERS Sodium Chloride (Sodium Chloride Flush 0.9% 10 Ml Syringe) 10 ml IVP 0100,0900,1700 PENDING SALE TO [facility] Last Admin: 02/17/21 08:29 Dose: Not Given Documented by: Venlafaxine HCl (Venlafaxine Er 75 Mg Capsule) 75 mg PO DAILY PENDING SALE TO [facility] Last Admin: 02/17/21 08:29 Dose: 75 mg Documented by: Aspirin Chewable [St Jeremias Aspirin] 81 mg DAILY 06/19/19 Eplerenone 50 mg PO DAILY 06/19/19 Lisinopril [Zestril] 20 mg PO DAILY 06/19/19 Metoprolol Succinate 150 mg PO DAILY 06/19/19 Rosuvastatin Calcium 40 mg PO DAILY 06/19/19 Venlafaxine HCl [Effexor Xr] 75 mg DAILY 06/19/19 Objective - Vital Signs/Intake & Output Reviewed Vital Signs: Yes Vital Signs: Vital Signs x48h Temp Pulse Resp BP Pulse Ox 02/17/21 08:42 109/62 02/17/21 08:00 36.7 C 67 18 101/62 97 Intake & Output: Intake & Output 02/14/21 02/15/21 02/16/21 02/17/21 23:59 23:59 23:59 23:59 Intake Total 68.25 2638.54 Balance 68.25 2638.54 - Objective General Appearance: positive: Alert, Other (Sitting up in bed, lucid historian. Normal speech pattern.) Eyes Bilateral: positive: PERRL, EOMI ENT: positive: No signs of dehydration Neck: positive: No JVD Respiratory: positive: No respiratory distress. negative: Wheezes, Rales, Rhonchi Cardiovascular: positive: Regular rate & rhythm. negative: Gallop/S4, Friction rub Abdomen: positive: No organomegaly, Nml bowel sounds, No distention, Tenderness (Left midabdomen. Some mid abdominal pain just up into the right of her umbilicus.). negative: Guarding, Rebound Skin: positive: Warm, Dry. negative: Diaphoresis, Pallor Extremities: positive: Full ROM, No pedal edema Neurologic/Psychiatric: positive: Oriented x3, CN's nml (2-12), Motor nml - Lab Results Fish Bones: 02/17/21 05:28 02/16/21 09:31 Other Labs: Lab Results x24hrs 02/17/21 02/17/21 02/17/21 Range/Units 05:28 05:28 05:28 WBC (4.8-10.8) x10^3/uL RBC (4.20-5.40) 10^6/uL Hgb (12.0-16.0) g/dL Hct (37.0-47.0) % MCV (81.0-99.0) fL MCH (27.0-31.0) pg MCHC (32.0-36.0) g/dL RDW (12.0-15.0) % Plt Count (130-450) 10^3/uL MPV (7.9-10.8) fL APTT 58.6 H (24.9-33.3) secs D-Dimer (200.0-255.0) ng/mL Estimat Average Glucose (70-100) mg/dL Hemoglobin A1c % (4.27-6.07) % Troponin I High Sens (2.3-14.8) ng/L Triglycerides 157 H ( - 149) mg/dL Cholesterol 96 ( - 199) mg/dL LDL Cholesterol, Calc 33 ( - 129) mg/dL VLDL Cholesterol 31 mg/dL HDL Cholesterol 32 L (60 - ) mg/dL LDL/HDL Ratio 1.0 (<4.4) Cholesterol/HDL Ratio 3.0 (<4.4) TSH 0.90 (0.34-5.60) uIU/mL Urine Color Urine Clarity (CLEAR) Urine pH (5.0-7.5) PH Ur Specific [place] (1.002-1.030) Urine Protein (NEGATIVE) mg/dL Urine Glucose (UA) (NEGATIVE) mg/dL Urine Ketones (NEGATIVE) mg/dL Urine Occult Blood (NEGATIVE) Urine Nitrite (NEGATIVE) Urine Bilirubin (NEGATIVE) Urine Urobilinogen (NORMAL) E.U./dL Ur Leukocyte Esterase (NEGATIVE) Ur Microscopic Review Urine Culture Comments SARS-CoV-2 (PCR) Blood Type Blood Type Recheck Antibody Screen 02/17/21 02/16/21 02/16/21 Range/Units 05:28 21:35 21:35 WBC 7.4 (4.8-10.8) x10^3/uL RBC 3.79 L (4.20-5.40) 10^6/uL Hgb 11.6 L (12.0-16.0) g/dL Hct 36.0 L (37.0-47.0) % MCV 95.0 (81.0-99.0) fL MCH 30.6 (27.0-31.0) pg MCHC 32.2 (32.0-36.0) g/dL RDW 12.1 (12.0-15.0) % Plt Count 219 (130-450) 10^3/uL MPV 11.5 H (7.9-10.8) fL APTT (24.9-33.3) secs D-Dimer (200.0-255.0) ng/mL Estimat Average Glucose 186 H (70-100) mg/dL Hemoglobin A1c % 8.1 H (4.27-6.07) % Troponin I High Sens 9.3 (2.3-14.8) ng/L Triglycerides ( - 149) mg/dL Cholesterol ( - 199) mg/dL LDL Cholesterol, Calc ( - 129) mg/dL VLDL Cholesterol mg/dL HDL Cholesterol (60 - ) mg/dL LDL/HDL Ratio (<4.4) Cholesterol/HDL Ratio (<4.4) TSH (0.34-5.60) uIU/mL Urine Color Urine Clarity (CLEAR) Urine pH (5.0-7.5) PH Ur Specific [place] (1.002-1.030) Urine Protein (NEGATIVE) mg/dL Urine Glucose (UA) (NEGATIVE) mg/dL Urine Ketones (NEGATIVE) mg/dL Urine Occult Blood (NEGATIVE) Urine Nitrite (NEGATIVE) Urine Bilirubin (NEGATIVE) Urine Urobilinogen (NORMAL) E.U./dL Ur Leukocyte Esterase (NEGATIVE) Ur Microscopic Review Urine Culture Comments SARS-CoV-2 (PCR) Blood Type Blood Type Recheck Antibody Screen 02/16/21 02/16/21 02/16/21 Range/Units 21:35 21:35 18:09 WBC 8.6 (4.8-10.8) x10^3/uL RBC 4.20 (4.20-5.40) 10^6/uL Hgb 13.2 (12.0-16.0) g/dL Hct 38.3 (37.0-47.0) % MCV 91.2 (81.0-99.0) fL MCH 31.4 H (27.0-31.0) pg MCHC 34.5 (32.0-36.0) g/dL RDW 12.1 (12.0-15.0) % Plt Count 265 (130-450) 10^3/uL MPV 10.9 H (7.9-10.8) fL APTT > 240.0 H* (24.9-33.3) secs D-Dimer (200.0-255.0) ng/mL Estimat Average Glucose (70-100) mg/dL Hemoglobin A1c % (4.27-6.07) % Troponin I High Sens (2.3-14.8) ng/L Triglycerides ( - 149) mg/dL Cholesterol ( - 199) mg/dL LDL Cholesterol, Calc ( - 129) mg/dL VLDL Cholesterol mg/dL HDL Cholesterol (60 - ) mg/dL LDL/HDL Ratio (<4.4) Cholesterol/HDL Ratio (<4.4) TSH (0.34-5.60) uIU/mL Urine Color Urine Clarity (CLEAR) Urine pH (5.0-7.5) PH Ur Specific [place] (1.002-1.030) Urine Protein (NEGATIVE) mg/dL Urine Glucose (UA) (NEGATIVE) mg/dL Urine Ketones (NEGATIVE) mg/dL Urine Occult Blood (NEGATIVE) Urine Nitrite (NEGATIVE) Urine Bilirubin (NEGATIVE) Urine Urobilinogen (NORMAL) E.U./dL Ur Leukocyte Esterase (NEGATIVE) Ur Microscopic Review Urine Culture Comments SARS-CoV-2 (PCR) Blood Type Blood Type Recheck A POSITIVE Antibody Screen 02/16/21 02/16/21 02/16/21 Range/Units 18:09 15:07 12:22 WBC (4.8-10.8) x10^3/uL RBC (4.20-5.40) 10^6/uL Hgb (12.0-16.0) g/dL Hct (37.0-47.0) % MCV (81.0-99.0) fL MCH (27.0-31.0) pg MCHC (32.0-36.0) g/dL RDW (12.0-15.0) % Plt Count (130-450) 10^3/uL MPV (7.9-10.8) fL APTT (24.9-33.3) secs D-Dimer 339.5 H (200.0-255.0) ng/mL Estimat Average Glucose (70-100) mg/dL Hemoglobin A1c % (4.27-6.07) % Troponin I High Sens (2.3-14.8) ng/L Triglycerides ( - 149) mg/dL Cholesterol ( - 199) mg/dL LDL Cholesterol, Calc ( - 129) mg/dL VLDL Cholesterol mg/dL HDL Cholesterol (60 - ) mg/dL LDL/HDL Ratio (<4.4) Cholesterol/HDL Ratio (<4.4) TSH (0.34-5.60) uIU/mL Urine Color YELLOW Urine Clarity CLEAR (CLEAR) Urine pH 7.0 (5.0-7.5) PH Ur Specific [place] 1.015 (1.002-1.030) Urine Protein NEGATIVE (NEGATIVE) mg/dL Urine Glucose (UA) NEGATIVE (NEGATIVE) mg/dL Urine Ketones NEGATIVE (NEGATIVE) mg/dL Urine Occult Blood NEGATIVE (NEGATIVE) Urine Nitrite NEGATIVE (NEGATIVE) Urine Bilirubin NEGATIVE (NEGATIVE) Urine Urobilinogen 0.2 (NORMAL) (NORMAL) E.U./dL Ur Leukocyte Esterase NEGATIVE (NEGATIVE) Ur Microscopic Review NOT INDICATED Urine Culture Comments NOT INDICATED SARS-CoV-2 (PCR) Blood Type A POSITIVE Blood Type Recheck Antibody Screen NEGATIVE 02/16/21 Range/Units 10:55 WBC (4.8-10.8) x10^3/uL RBC (4.20-5.40) 10^6/uL Hgb (12.0-16.0) g/dL Hct (37.0-47.0) % MCV (81.0-99.0) fL MCH (27.0-31.0) pg MCHC (32.0-36.0) g/dL RDW (12.0-15.0) % Plt Count (130-450) 10^3/uL MPV (7.9-10.8) fL APTT (24.9-33.3) secs D-Dimer (200.0-255.0) ng/mL Estimat Average Glucose (70-100) mg/dL Hemoglobin A1c % (4.27-6.07) % Troponin I High Sens (2.3-14.8) ng/L Triglycerides ( - 149) mg/dL Cholesterol ( - 199) mg/dL LDL Cholesterol, Calc ( - 129) mg/dL VLDL Cholesterol mg/dL HDL Cholesterol (60 - ) mg/dL LDL/HDL Ratio (<4.4) Cholesterol/HDL Ratio (<4.4) TSH (0.34-5.60) uIU/mL Urine Color Urine Clarity (CLEAR) Urine pH (5.0-7.5) PH Ur Specific [place] (1.002-1.030) Urine Protein (NEGATIVE) mg/dL Urine Glucose (UA) (NEGATIVE) mg/dL Urine Ketones (NEGATIVE) mg/dL Urine Occult Blood (NEGATIVE) Urine Nitrite (NEGATIVE) Urine Bilirubin (NEGATIVE) Urine Urobilinogen (NORMAL) E.U./dL Ur Leukocyte Esterase (NEGATIVE) Ur Microscopic Review Urine Culture Comments SARS-CoV-2 (PCR) NOT DETECTED Blood Type Blood Type Recheck Antibody Screen ABX Reporting Has patient been on IV antibiotics over the past 48 hours?: No Assessment/Plan - Problem List (1) Splenic infarction Impression: holding if below 110 systolic. This case was discussed with vascular surgery in the emergency room. It is unclear who the provider was or which hospital. Nevertheless differential diagnosis includes cardioembolic phenomena, malignant neoplasm, hypercoagulable states, trauma, postoperative trauma, pancreatitis, infection such as sepsis or abscess, atherosclerosis or cirrhosis. None of these apply to this unfortunate female. She has been placed on a heparin drip pending cardioembolic phenomena or embolic phenomena. Hypercoagulable work-up was ordered and sent out but I do not anticipate that coming back for another week. CT angiogram of the chest and abdomen is essentially clear except for a subendocardial fat pad within the myocardium of the left ventricle. It is nonspecific and suggestive of previous prior infarct. Evaluation for intraventricular thrombus limited in the absence of cardiac gating. They recommend echo. She continues to show hypoenhancement of the spleen consistent with splenic infarct. Plan: Keep on heparin drip until we find out the echo. (2) Hypertension Impression: Metoprolol succinate 150 mg at night. Zestril 20 mg during the day. This morning her blood pressure is on the low side of 103-109 systolic. Medications will be held Qualifiers: Hypertension type: primary hypertension Qualified Code(s): I10 - Essential (primary) hypertension (3) New onset type 2 diabetes mellitus Impression: Random glucose on admission was 199. Subsequent A1c was checked and she is 8.1%. She does not have polyuria, polydipsia, polyphagia. This is a new diagnosis. Plan: Diabetic education with jewel waxer service start metformin in the next few days. She has had an extensive dye load with her studies and should be hydrated first. Establish new disease care with her PCP. Belkys Estrella.
--- NOTE | 2021-02-17 11:46 | PHARMACY PROGRESS NOTE ---
- Best Possible Medication History Admit Date and Time: 02/16/21 1737 Processed by: Pharmacy Medication History completed: Yes Patient Interview: Completed Secondary Source(s): Prescription bottles, Spouse/Significant other, Insurance records As the person ultimately responsible for medication therapy, providers are able to order a medication from an existing home medication list in [facility] via the "Reconcile Routine" prior to Confirmation of that medication by technical support assistant. Such practice is discouraged except when the physician, in their clinical judgment, deems that a medical need exists for a medication without regard to previous use.
[2021-02-17] MEDS: polyethylene glycoL 3350 17 GM PACKET PO SCH (12:08)
[2021-02-17] MEDS: oxyCODONE 5 MG TABLET PO PRN ×2 (13:14→18:04)
[2021-02-17] MEDS: APIXABAN 5 MG TABLET PO SCH (21:01)
[2021-02-17] MEDS: ATORVASTATIN 40 MG TABLET PO SCH (21:01)
[2021-02-18] MEDS: oxyCODONE 5 MG TABLET PO PRN (00:11)
[2021-02-18] MEDS: SODIUM CHLORIDE FLUSH 0.9% 10 ML SYRINGE IVP SCH ×2 (00:11→08:23)
[2021-02-18] MEDS: LACTATED RINGERS 1,000 ML IV SCH ×2 (05:26→08:23)
[2021-02-18 07:25] LABS: BASOPHILS % (AUTO) 0.6 %; EOSINOPHILS # (AUTO) 0.2 10^3/uL (0.0-0.7); EOSINOPHILS % (AUTO) 2.2 %; HCT - HEMATOCRIT 35.8 % (37.0-47.0); HGB - HEMOGLOBIN 11.8 g/dL (12.0-16.0); LYMPHOCYTES # (AUTO) 1.7 10^3/uL (1.5-3.5); LYMPHOCYTES % (AUTO) 24.1 %; MEAN CORPUSCULAR HEMOGLOBIN 30.5 pg (27.0-31.0); MEAN CORPUSCULAR VOLUME 92.5 fL (81.0-99.0); MEAN PLATELET VOLUME 10.5 fL (7.9-10.8); MONOCYTES # (AUTO) 0.7 10^3/uL (0.0-1.0); MONOCYTES % (AUTO) 9.8 %; NEUTROPHILS # (AUTO) 4.3 10^3/uL (1.5-6.6); NEUTROPHILS % (AUTO) 62.9 %; PLT - PLATELET COUNT 207 10^3/uL (130-450); RED BLOOD COUNT 3.87 10^6/uL (4.20-5.40); RED CELL DISTRIBUTION WIDTH 12.2 % (12.0-15.0); WHITE BLOOD COUNT 6.9 x10^3/uL (4.8-10.8)
[2021-02-18 07:27] LABS: CALCIUM 8.9 mg/dL (8.5-10.3); POTASSIUM 3.9 mmol/L (3.5-5.0)
[2021-02-18] MEDS: APIXABAN 5 MG TABLET PO SCH (08:22)
[2021-02-18] MEDS: VENLAFAXINE ER 75 MG CAPSULE PO SCH (08:23)
[2021-02-18] MEDS: polyethylene glycoL 3350 17 GM PACKET PO SCH (08:24)
--- NOTE | 2021-02-18 12:25 | Discharge Plan ---
Discharge Plan Problem Reviewed?: Yes Disposition: Home, Self Care Condition: Good Prescriptions: Apixaban [Eliquis] 5 mg PO BID #60 tablet Blood-Glucose Meter [Glucometer] 1 each MC DAILY #1 each Blood Sugar Diagnostic [Glucometer Strips] 1 each MC BID #1 bottle metFORMIN [Glucophage] 500 mg PO BIDWM #60 tablet Lancets 1 each MC BID #1 bottle Diet: Diabetic Activity Restrictions: Additional Comments (no fall risk activity such as climbing ladders, roofs, trees. Please be careful of falls) Shower Restrictions: No Driving Restrictions: No Health Concerns: Presented to our emergency room with sudden onset of left mid abdominal pain. It woke you up in the middle the night from sleep. After evaluation in the emergency room we found you to have infarction of your spleen. That means that you lost blood supply to your spleen suddenly. The causes of that could be a blood clot from the heart, a spontaneous blood clot with in the spleen itself, malignancy, a blood clotting disorder, etc. We have evaluated you with an angiogram that showed intact blood supply except for where the spleen was infarcted. An echocardiogram of your heart shows you to have reduced ejection fraction on the left side where you had your previous heart attack but no valvular heart disease. We monitored you overnight for telemetry and you did not have atrial fibrillation. You did have six beats of a wide-complex rhythm that you were without symptoms. You have had many blood test done, all of them for blood clotting disorders. Those blood test are not back yet and will need to be reviewed. The other problem we identified during her stay was new onset diabetes mellitus. This is a completely new diagnosis for you. Plan of Treatment: 1. At this time you will be on a blood thinner. We are hoping that this will be only a short duration until you find the source of the cause of the infarct. We do this with an abundance of caution because we want to make sure you do not have another blood clot. The name of the medicine is Eliquis and you will take it twice a day. 2. We would love an opinion from your centerless grinder set up operator. An echocardiogram was done while you were here and he should be able to request those records. He should also know you had that six beat run of a wide-complex rhythm for which you were without symptoms. 3. Once you establish yourself with a new primary care provider, please have that primary care provider refer you to hematology oncology specialty services. They will review all the blood clotting lab test that were done on you. They may do some of their own. 4. You will need new diabetic instruction and education from your primary care provider. As such I have taken the liberty of ordering a blood glucose machine, test strips with the machine, and lancets to pick your finger. You do not know how to check your sugar yet. That is okay. I have started you on a pill in the morning, and a pill at night. Is called Glucophage. The pill will help bring down your sugar. The most common side effect is diarrhea or loose stools. Once you see your new primary care provider, have them refer you for diabetic education so you can start learning how to check your sugars and control your diabetes. Goal blood work is to have a hemoglobin A1c of less than 7%. You are currently 8.1%. That means on average your glucose is 186. Our goal is to have a glucose on average of 110. Care Goals: To find out the cause of this sudden damage to your spleen. And to treat it to successful completion. Assessment: and patient have been updated on the treatment and future plans. They will follow through. already has an appointment next week to see a new primary care provider to then get referral to oncology. She also has put in a call to her centerless grinder set up operator office for them to be updated as well. No Smoking: If you smoke, Please STOP! Call for help.
[2021-02-18 12:43] VITALS: BP 123/74
--- NOTE | 2021-02-18 12:47 | DISCHARGE SUMMARY ---
"Discharge Summary Admit Date: 02/16/21 Discharge Date: 02/18/21 Discharging Provider: Josefina Sutherland MD Primary Care Provider: Jimmie Griffith MD/FIONA Lala Condition at Discharge: Good Discharge Disposition: 01 Home, Self Care - DIAGNOSES Discharge Diagnoses with Status of Each Condition: 1. Splenic infarction 2. Hypertension 3. New onset type 2 diabetes mellitus 4. History of coronary artery disease 5. Chronic systolic heart failure - HPI History of Present Illness: The patient is a pleasant 65-year-old white female with past medical history of hypertension and remote history of coronary artery disease. She does not have history of diabetes, cardiac arrhythmia or thromboembolic disorder. She reports usually being in good general health. She was in her usual state of health up to 2 AM on February 16 at which time she was woken up from sleep by strong sharp left lower quadrant abdominal pain. The pain actually started in the upper quadrant and radiated down to the lower quadrant and to the groin. It was 8 out of 10 intensity, constant, nonresolving. Was associated with nausea and couple of episodes of emesis. Last bowel movement was the day prior, was normal. Patient reports no history or sign of GI bleed. Denied chest pain or shortness of breath. Did not report fever. Never experienced similar abdominal pain in the past. The symptom onset was acute and severe therefore she came to the ER for evaluation. The ER work-up showed a splenic infarct, 50% of the spleen parenchyma being affected. Case was discussed with vascular surgeon who recommended telemetry monitoring, heparin drip, hypercoagulability work-up echocardiogram and further work-up with CT angiography of the chest including the upper abdomen. Subsequently, the patient was accepted to [facility] by the daytime hospitalist and all the recommended orders were placed. Past medical history: Hypertension Dyslipidemia Depression C1 cervical fracture status post fall, treated conservatively Thyroid nodule Coronary artery disease status post angioplasty more than 20 years ago - CONSULTS | PROCEDURES Procedures: 1. Abdomen pelvis CT with no opacification of the anterior spleen, approximately 50% of the parenchyma is not opacified. Findings consistent with splenic infarct. Liver is unremarkable. Pancreas is unremarkable. 2. Chest thorax CT angiogram with no focal stenosis, occlusion or filling defect within the thoracic aorta. Subendocardial fat within the left ventricle apex. Finding is nonspecific but suggestive of a prior infarct. Evaluation for intraventricular thrombus limited in the absence of cardiac gating. Hypoenhancement of the spleen consistent with splenic infarct redemonstrated. 3. Abdomen pelvis CT angiogram with no focal stenosis with thrombus identified in the abdominal aorta or its branch vessels proximally. Splenic artery appears patent. 4. Echocardiogram has left ventricular wall thickness normal. Overall left ventricular systolic function mildly impaired with ejection fraction of 45 to 50%. Severe hypokinesis of the mid anteroseptal wall segments and the apex. No thrombus. Right ventricle is normal. No hemodynamically significant valvular heart disease. 5. Telemetry for 48 hours essentially negative except for one 6 beat run of a wide-complex tachycardia that left the patient without any symptoms or blood pressure changes. - HOSPITAL COURSE Hospital Course: This case was discussed with vascular surgery in the emergency room. It is unclear who the provider was or which hospital per the ER notes. Nevertheless differential diagnosis includes cardioembolic phenomena, malignant neoplasm, hypercoagulable states, trauma, postoperative trauma, pancreatitis, infection such as sepsis or abscess, atherosclerosis or cirrhosis. None of these apply to this unfortunate female on the basis of history or her physical exam/preliminary labs. She was placed on a heparin drip pending evaulation for cardioembolic phenomena or embolic phenomena. Hypercoagulable work-up was ordered and sent out but I do not anticipate that coming back for another week. CT angiogram of the chest and abdomen is essentially clear except for a subendocardial fat pad within the myocardium of the left ventricle. It is nonspecific and suggestive of previous prior infarct. Evaluation for intraventricular thrombus limited in the absence of cardiac gating. They recomm end echo with the results as above. During her stay, all of her abdominal pain was gone within the first 18 hours. She was eating well. Having flatus and bowel movements. Blood pressure was low. Sometimes low as 103-109 systolic. She was given her metoprolol at night but we withheld her Zestril. By discharge she is 123/74, heart rate 79. This is only on metoprolol. I have suggested to her that she hold her Zestril until she sees her family court registrar. Random glucose on admission was 199. Subsequent A1c was checked and she is 8.1%. She does not have polyuria, polydipsia, polyphagia. This is a new diagnosis. I am recommending that she get an order from her new primary care provider for Diabetic education with utilities service investigator service. She should start metformin in the next few days. She has had an extensive dye load with her studies and should be hydrated first. I have warned her of the side effects. She will need a glucometer, test strips, lancets. All of these were called into the pharmacy. She has not received any education on how to do this yet. I have explained to her the goals are an A1c less than 7%. At discharge, temperature is 36.8. Heart rate is 79. Blood pressure 123/74. Respirations 20. 98% on room air. Her is at the bedside and has been at the bedside since she was admitted. He has been part of all of our assessments, plans, and treatment discussions. She is 5 foot 7 inches tall and weighs 78 kg. Alert, oriented, lucid historian. Normal speech. Neck is supple without goiter or bruits. Lungs are clear to auscultation and percussion. She has a regular rate and rhythm. No S3. And abdomen that is benign. No abdominal pain, normal bowel sounds, no masses. Extremities without edema. Greater than 30 minutes was spent coordinating discharge and giving patient instruction. She plans on establishing herself with Jimmie Griffith's office. She will see the EMERGENCY VEHICLE DRIVER Sarah Hargrove first. She will then get a referral to hematology oncology. She will also touch base with her family court registrar, Kunal Chung MD with [facility]. - ALLERGIES Allergies/Adverse Reactions: Allergies Allergy/AdvReac Type Severity Reaction Status Date / Time acetaminophen [From Vicodin] Allergy Itching Verified 02/16/21 09:09 hydrocodone [From Vicodin] Allergy Itching Verified 02/16/21 09:09 - MEDICATIONS Home Medications: Ambulatory Orders Medication Instructions Recorded Confirmed Aspirin Chewable [[facility] Jeremias 81 mg PO DAILY 06/19/19 02/17/21 Aspirin] Eplerenone 50 mg PO DAILY 06/19/19 02/17/21 Lisinopril [Zestril] 20 mg PO DAILY 06/19/19 02/17/21 Metoprolol Succinate 200 mg PO QPM 06/19/19 02/17/21 Rosuvastatin Calcium 40 mg PO QPM 06/19/19 02/17/21 Venlafaxine HCl [Effexor Xr] 75 mg PO DAILY 06/19/19 02/17/21 Apixaban [Eliquis] 5 mg PO BID #60 tablet 02/18/21 Blood Sugar Diagnostic [Glucometer 1 each BID #1 bottle 02/18/21 Strips] Blood-Glucose Meter [Glucometer] 1 each DAILY #1 each 02/18/21 Lancets 1 each BID #1 bottle 02/18/21 metFORMIN [Glucophage] 500 mg PO BIDWM #60 tablet 02/18/21 - LABS Result Diagrams: 02/18/21 07:12 02/18/21 07:12"
[2021-02-18 13:11] LABS: PROTEIN C ACTIVITY 149 % normal (70-180)
[2021-02-19 11:12] LABS: ANA SCREEN NEGATIVE (NEGATIVE)
== END 2021-02-18 13:20 | disposition home or self-care (01) | DRG 815 ==
LOC: ED 08:51 → MS2 17:34
PROVIDERS: ADMIT Internal Medicine; ATTEND Specialist
DX: D73.5 Infarction of spleen (principal); I50.22 Chronic systolic (congestive) heart failure; E11.9 Type 2 diabetes mellitus without complications; I25.10 Atherosclerotic heart disease of native coronary artery without angina pectoris; I11.0 Hypertensive heart disease with heart failure; F32.9 Major depressive disorder, single episode, unspecified; Z98.61 Coronary angioplasty status; Z20.822 Contact with and (suspected) exposure to COVID-19
CPT/HCPCS: 36415; 71275; 74174; 74177; 80048; 80053; 80061; 81003; 81241; 81599; 83036; 83690; 84443; 84484; 85025; 85027; 85303; 85379; 85613; 85730; 86038; 86146; 86147; 86850; 86900; 86901; 87635; 93005; 93306; 96374; 96375; 96376; 99284; 99285; A9270; J1170; J7120; Q9967; 81001; 83721; 85520; 87086

== ENCOUNTER 2021-04-05 11:05 | Outpatient (CLI) | payer OTHER | END 2021-04-05 11:06 | disposition home or self-care (01) | LOC: LAB.S 11:05 | PROVIDERS: ATTEND Internal Medicine | DX: D73.5 Infarction of spleen (principal); I25.10 Atherosclerotic heart disease of native coronary artery without angina pectoris | CPT/HCPCS: 81219; 81240; 81270; 81339; 81479; 81599 ==

== ENCOUNTER 2023-11-11 11:33 | Emergency (ER) | payer OTHER ==
--- NOTE | 2023-11-11 14:02 | ED Physician Documentation ---
PD HPI UPPER EXT INJURY - Stated complaint Stated Complaint: MUSCLE SPASMS LT SHOULDER - Chief complaint Chief Complaint: General - History obtained from History obtained from: Patient - History of Present Illness Location: Left, Shoulder Type of injury: Other (overuse) Where injury occurred: Home (in the garden) Timing - onset: How many weeks ago (2) Timing - duration: Weeks (1) Timing - details: Gradual onset, Still present Improved by: Rest, Meds (oxycodone) Worsened by: Moving, Palpating Associated symptoms: No: Weakness, Numbness, Tingling, Swelling, Discolored Contributing factors: Anticoagulated Similar symptoms before: Diagnosis (muscle spasm) Recently seen: Clinic - Additonal information Additional information: Nika Solo is a 69-year-old female who has had a prior Alberto fracture of her neck about 4 years ago. She recovered from that and about 2 years ago she developed some pain in her left shoulder posteriorly. She states the pain she is having now is similar to that and at the time she got an injection into the area that resolved her pain. She indicates that she has been working in the garden 2 weeks ago and believes that what is what initiated this pain to start with. She went into see someone at the urgent care clinic about 1 week ago was given some injection into the area and placed on some muscle relaxant which did not help. She has also been treated for URI with prednisone and her URI is much better but her shoulder pain is worse.She has been unable to sleep at night and she did try some oxycodone which she had leftover from her neck fracture this seemed to help with the pain. Review of Systems Constitutional: denies: Fever Eyes: denies: Decreased vision Ears: denies: Ear pain Nose: reports: Congestion (improving) Throat: denies: Sore throat Cardiac: denies: Chest pain / pressure Respiratory: reports: Cough (improving) GI: denies: Abdominal Pain, Abdominal Swelling, Nausea, Vomiting, Constipation, Diarrhea : denies: Dysuria, Frequency PD PAST MEDICAL HISTORY - Past Medical History Cardiovascular: Hypertension Neuro: None Endocrine/Autoimmune: None GI: None PIPE WELDER: None : None HEENT: None Psych: None Musculoskeletal: Other Derm: None - Past Surgical History Past Surgical History: No - Present Medications Home Medications: Ambulatory Orders Medication Instructions Recorded Confirmed Aspirin Chewable [St Jeremias 81 mg PO DAILY 06/19/19 02/17/21 Aspirin] Eplerenone 50 mg PO DAILY 06/19/19 02/17/21 Lisinopril [Zestril] 20 mg PO DAILY 06/19/19 02/17/21 Metoprolol Succinate 200 mg PO QPM 06/19/19 02/17/21 Rosuvastatin Calcium 40 mg PO QPM 06/19/19 02/17/21 Venlafaxine HCl [Effexor Xr] 75 mg PO DAILY 06/19/19 02/17/21 Apixaban [Eliquis] 5 mg PO BID #60 tablet 02/18/21 Blood Sugar Diagnostic [Glucometer 1 each MC BID #1 bottle 02/18/21 Strips] Blood-Glucose Meter [Glucometer] 1 each MC DAILY #1 each 02/18/21 Lancets 1 each MC BID #1 bottle 02/18/21 metFORMIN [Glucophage] 500 mg PO BIDWM #60 tablet 02/18/21 Oxycodone HCl/Acetaminophen 1 - 2 each PO Q6H PRN #14 tablet 11/11/23 [Percocet 5-325 mg Tablet] - Allergies Allergies/Adverse Reactions: Allergies Allergy/AdvReac Type Severity Reaction Status Date / Time acetaminophen [From Vicodin] Allergy Itching Verified 11/11/23 11:42 hydrocodone [From Vicodin] Allergy Itching Verified 11/11/23 11:42 - Social History Does the pt smoke?: No Smoking Status: Never smoker Does the pt drink ETOH?: Yes Does the pt have substance abuse?: No - Immunizations Immunizations are current?: Yes - POLST Patient has POLST: No PD ED PE NORMAL - Vitals Vital signs reviewed: Yes (hypertensive ) - General General: Alert and oriented X 3, No acute distress, Well developed/nourished - HEENT HEENT: Atraumatic, PERRL, EOMI - Neck Neck: Supple, no meningeal sign, No bony TTP, Other (There is mild tenderness and localization of pain to the left side at the insertion of the trapezius laterally and over the supraspinatous. Not over the rhomboids. ) - Respiratory Respiratory: No respiratory distress - Back Back: No CVA TTP, No spinal TTP - Derm Derm: Normal color, Warm and dry, No rash - Extremities Extremities: No deformity, No edema - Neuro Neuro: Alert and oriented X 3, study manager 2-12 intact, No motor deficit, No sensory deficit, Normal speech Eye Opening: Spontaneous Motor: Obeys Commands Verbal: Oriented GCS Score: 15 - Psych Psych: Normal mood, Normal affect Results - Vitals Vitals: Vital Signs - 24 hr 11/11/23 11:42 Temperature 36.3 C L Heart Rate 66 Respiratory 12 Rate Blood Pressure 138/78 H O2 Saturation 97 Oxygen O2 Source Room air PD Medical Decision Making - ED course Complexity details: considered differential, d/w patient ED course: 68-year-old female with a myofascial strain of her right shoulder and neck has not had improvement with the use of acetaminophen and a muscle relaxant. She is on a course of prednisone now for her URI which is improving. Here in the emergency department she is treated with Toradol IM and we will place her on a course of some Percocet for pain control Departure - Departure Disposition: 01 Home, Self Care Clinical Impression: Acute thoracic myofascial strain Qualifiers: Encounter type: initial encounter Qualified Code(s): S29.019A - Strain of muscle and tendon of unspecified wall of thorax, initial encounter Condition: Stable Instructions: ED Spasm Back No Trauma, ED Neck Back Pain General Follow-Up: Blaine Hill MD [Provider Admit Priv/Credential] - Prescriptions: Oxycodone HCl/Acetaminophen [Percocet 5-325 mg Tablet] 1 - 2 each PO Q6H PRN #14 tablet PRN Reason: pain Comments: Nika, today it looks like you have a myofascial strain to the muscles in your neck and upper back around your shoulder. This usually will take 1 to 2 weeks to resolve. We have provided some Percocet for you to use over the next several days to treat pain. Medications have been E scribed to the [facility] in [place]. Our expectations with treatment are improvement in your pain. If you are not having improvement or you are not improving well enough follow-up with the orthopedic doctor for further evaluation and treatment. Physical therapy is sometimes indicated. Forms: PCP List
[2023-11-11] MEDS: KETOROLAC 30 MG/ML VIAL IM STA (14:14)
[2023-11-11 14:35] VITALS: BP 136/97; O2SAT 96
== END 2023-11-11 14:27 | disposition home or self-care (01) ==
LOC: ED 11:33
DX: S29.012A Strain of muscle and tendon of back wall of thorax, initial encounter (principal); X58.XXXA Exposure to other specified factors, initial encounter; I10 Essential (primary) hypertension; Z79.82 Long term (current) use of aspirin; Z79.899 Other long term (current) drug therapy; Z79.01 Long term (current) use of anticoagulants; Z79.84 Long term (current) use of oral hypoglycemic drugs
CPT/HCPCS: 96372; 99283

== ENCOUNTER 2023-12-11 08:44 | Outpatient (CLI) | payer OTHER ==
--- NOTE | 2023-12-11 19:49 | XRAY Report ---
PROCEDURE: Shoulder 2+V LT INDICATIONS: LEFT SHOULDER PAIN TECHNIQUE: 4 views of the shoulder were acquired. COMPARISON: None. FINDINGS: Bones: No fractures or dislocations. No suspicious bony lesions. Visualized ribs appear intact. Soft tissues: No suspicious soft tissue calcifications. The visualized lungs are within normal limi ts. IMPRESSION: No acute bony abnormality. Reviewed by: Kwabena Mcdowell MD on 12/11/2023 7:47 PM PDT Approved by: Kwabena Mcdowell MD on 12/11/2023 7:47 PM PDT Station ID: [id number]
== END 2023-12-11 08:45 | disposition home or self-care (01) ==
LOC: DI 08:44
PROVIDERS: ATTEND Physician Assistant Surgical
DX: M25.512 Pain in left shoulder (principal)